=== PATIENT | female | born 1995 | race Hispanic/Latino ===

== ENCOUNTER 2017-07-29 17:54 | Emergency (ER) | payer OTHER ==
[~2017-07-29] VITALS: Ht 160 cm; Wt 77.1 kg
[~2017-07-29 17:54] MED LIST: PERCOCET 5-3251 EACH PO
[2017-07-29 18:22] VITALS: BP 124/86
[2017-07-29 19:00] LABS: ABSOLUTE BASOPHIL COUNT 0 /CUMM (0.0-0.2); ABSOLUTE EOSINOPHIL COUNT 0 /CUMM (0.0-0.7); ABSOLUTE GRANULOCYTE CT 8.6 /CUMM (1.4-6.5); ABSOLUTE LYMPH COUNT 1.9 /CUMM (1.2-3.4); ABSOLUTE MONOCYTE COUNT 0.6 /CUMM (0.10-0.60); BASOPHIL % 0 % (0.0-2.0); EOSINOPHIL % 0.3 % (0-5); GRANULOCYTE % 76.7 % (42.2-75.2); HEMATOCRIT 41.3 % (37-47); MEAN CORPUSCULAR HGB CONC 33.3 G/DL (33.0-37.0); MEAN CORPUSCULAR VOLUME 90.1 FL (81.0-99.0); MEAN PLATELET VOLUME 8.6 FL (7.4-10.4); PLATELET COUNT 279 /CUMM (130-400); RBC DISTRIBUTION WIDTH 13.2 % (11.5-14.5); RED BLOOD CELL CT 4.58 /CUMM (4.20-5.40); WHITE BLOOD CELL COUNT 11.1 /CUMM (4.8-10.8)
== END 2017-07-29 21:04 | disposition admitted as inpatient to this hospital (09) ==
LOC: ERH 17:54
PROVIDERS: Physician Assistant Medical
DX: R11.10 Vomiting, unspecified (principal)
CPT/HCPCS: 81025; 99281

== ENCOUNTER 2017-08-07 21:32 | Emergency (ER) | payer OTHER ==
[~2017-08-07] VITALS: Ht 157.5 cm; Wt 81.6 kg
--- NOTE | 2017-08-07 21:58 | ED GENERAL ADULT ---
History of Present Illness General Chief Complaint: Abdominal Pain/Flank Pain Stated Complaint: PT ABDOMANAIL PAIN Source: patient Exam Limitations: no limitations Vital Signs & Intake/Output Vital Signs & Intake/Output Vital Signs Date Time Temp Pulse Resp B/P B/P Pulse O2 O2 Flow FiO2 Mean Ox Delivery Rate 08/07 2202 Room Air 08/07 2145 96.9 79 18 124/75 98 Room Air Allergies Coded Allergies: watermelon (Severe, THROAT SWELLING 11/05/15) No Known Drug Allergies (Intermediate, NONE 07/29/17) Reconcile Medications Oxycodone HCl/Acetaminophen (Percocet 5-325 MG Tablet) 1 EACH TABLET 1-2 TAB PO Q4-6P PRN PAIN Triage Note: RECEIVED 22 YO FEMALE C/O LEFT LOWER QUADRENT ABDOMINAL PAIN, STARTED 2 DAYS AGO, WORSENING. NO C/O NAUSEA, PT REPORTS VOMITING INTERMITTENTLY. Triage Nurses Notes Reviewed? yes Onset: Abrupt Duration: day(s): Timing: recent history : No Patient currently breastfeeds: No HPI: 08/07/17 10 PM 22-year-old female presents to the emergency department with left-sided abdominal pain. The patient states she was in her usual state of health until approximately 48 hours prior to arrival when she developed left upper quadrant abdominal pain. She denies vomiting. She says it feels like she has to pee. She denies vaginal bleeding. She says that her last menstrual period was on the 20th of last month. She denies any vaginal discharge. She is a 1 para 0 with one prior induced . She denies alcohol but does smoke marijuana. Past History Travel History Traveled to [place] past 21 day No Medical History Any Pertinent Medical History? see below for history Neurological: NONE EENT: NONE Cardiovascular: NONE Respiratory: asthma Gastrointestinal: NONE Hepatic: NONE Renal: NONE Musculoskeletal: NONE Psychiatric: NONE Endocrine: NONE Blood Disorders: NONE Cancer(s): NONE FOUNDRY HAND/Reproductive: NONE Surgical History Surgical History: appendectomy Psychosocial History What is your primary language [place] Tobacco Use: Never used Family History Hx Contributory? No Review of Systems Review of Systems Constitutional: Denies: fever. EENTM: Reports: no symptoms. Respiratory: Denies: short of breath. Cardiovascular: Denies: chest pain. GI: Reports: abdominal pain. Denies: vomiting. Genitourinary: Reports: dysuria. Musculoskeletal: Reports: no symptoms. Skin: Reports: no symptoms. Neurological/Psychological: Reports: no symptoms. Hematologic/Endocrine: Reports: no symptoms. Immunologic/Allergic: Reports: no symptoms. Physical Exam Physical Exam General Appearance: well developed/nourished, alert, awake, anxious, mild distress Head: atraumatic, normal appearance Eyes: Bilateral: normal appearance, PERRL, EOMI. Ears, Nose, Throat: normal pharynx, normal ENT inspection, hearing grossly normal Neck: normal inspection Respiratory: normal breath sounds, chest non-tender, no respiratory distress Cardiovascular: regular rate/rhythm Peripheral Pulses: 4+ radial (R), 4+ radial (L) Gastrointestinal: soft, non-tender Back: normal range of motion Extremities: normal range of motion Neurologic/Psych: no motor/sensory deficits, awake, alert, oriented x 3 Skin: intact, normal color, warm/dry Core Measures ACS in differential dx? No CVA/TIA Diagnosis: No Sepsis Present: No Sepsis Focused Exam Completed? No Progress Differential Diagnoses I considered the following diagnoses in my evaluation of the patient: [UTI, pyelonephritis, cervicitis, ovarian cyst, ovarian torsion, PID, gastritis] Plan of Care: Orders Procedure Date/time Status Add-on Test (ER Only) 08/08 2215 Active CHLAMYDIA-GC DNA PROBE 08/07 2199 Active LIPASE 08/07 2137 Complete COMPREHENSIVE METABOLIC PANEL 08/07 2137 Complete CBC WITHOUT DIFFERENTIAL 08/07 2137 Complete URINE 08/07 2136 Complete URINALYSIS 08/07 2136 Complete Laboratory Tests 08/07/172199: Urine Color YEL, Urine Clarity HAZY H, Urine pH 7.0, Ur Specific [place] 1.020, Urine Protein NEG, Urine Ketones NEG, Urine Nitrite NEG, Urine Bilirubin NEG, Urine Urobilinogen 0.2, Ur Leukocyte Esterase NEG, Ur Microscopic SEDIMENT EXAMINED, Urine RBC 1-3, Urine WBC 1-3 H, Ur Epithelial Cells MANY H, Urine Bacteria RARE H, Urine Mucus RARE, Urine Hemoglobin NEG, Urine Glucose NEG, Urine Test NEGATIVE 08/07/172153: Anion Gap 11, Estimated GFR > 60, BUN/Creatinine Ratio 21.4, Glucose 95, Calcium 9.3, Total Bilirubin 0.4, AST 18, ALT 22, Alkaline Phosphatase 76, Total Protein 7.5, Albumin 4.5, Globulin 3.0, Albumin/Globulin Ratio 1.5, Lipase 125, CBC w Diff NO MAN DIFF REQ, RBC 4.58, MCV 89.8, MCH 30.1, MCHC 33.5, RDW 13.2, MPV 8.8 , Gran % 64.1, Lymphocytes % 26.1, Monocytes % 7.3, Eosinophils % 1.9, Basophils % 0.6, Absolute Granulocytes 6.1, Absolute Lymphocytes 2.5, Absolute Monocytes 0.7 H, Absolute Eosinophils 0.2, Absolute Basophils 0.1 Microbiology 08/07 2199 URINE ROUT: GC DNA Probe - RECD 08/07 2199 URINE ROUT: Chlamydia DNA Probe (VERITO) - RECD Initial ED EKG: none Departure Departure Disposition: STILL A PATIENT Condition: Stable Clinical Impression Primary Impression: Abdominal pain Referrals: Alena MCMILLAN,Carmella Galvan (PCP/Family) Departure Forms: Customer Survey General Discharge Information Comments 08/07/17 11 PM Patient has minimal to no pain at this time. Labs are unremarkable, she does have mild pyuria. We'll empirically treat with Keflex. I will send a culture. I will also give her an outpatient slip for a pelvic ultrasound. She will follow-up with her doctor on Thursday or return to the emergency department if worse. Critical Care Note Critical Care Note Critical Care Time: non-applicable
[2017-08-07 22:14] LABS: ABSOLUTE BASOPHIL COUNT 0.1 /CUMM (0.0-0.2); ABSOLUTE EOSINOPHIL COUNT 0.2 /CUMM (0.0-0.7); ABSOLUTE GRANULOCYTE CT 6.1 /CUMM (1.4-6.5); ABSOLUTE LYMPH COUNT 2.5 /CUMM (1.2-3.4); ABSOLUTE MONOCYTE COUNT 0.7 /CUMM (0.10-0.60); BASOPHIL % 0.6 % (0.0-2.0); EOSINOPHIL % 1.9 % (0-5); GRANULOCYTE % 64.1 % (42.2-75.2); HEMATOCRIT 41.1 % (37-47); MEAN CORPUSCULAR HGB 30.1 PG (27.0-31.0); MEAN CORPUSCULAR HGB CONC 33.5 G/DL (33.0-37.0); MEAN CORPUSCULAR VOLUME 89.8 FL (81.0-99.0); MEAN PLATELET VOLUME 8.8 FL (7.4-10.4); PLATELET COUNT 261 /CUMM (130-400); RBC DISTRIBUTION WIDTH 13.2 % (11.5-14.5); RED BLOOD CELL CT 4.58 /CUMM (4.20-5.40); WHITE BLOOD CELL COUNT 9.6 /CUMM (4.8-10.8)
[2017-08-07] MEDS ORDERED: KEFLEX500 M1 PO (22:59)
[2017-08-07 23:03] VITALS: BP 118/79
== END 2017-08-07 23:03 ==
LOC: ERH 21:32
PROVIDERS: Physician Assistant Medical
DX: R10.12 Left upper quadrant pain (principal)
CPT/HCPCS: 81001; 81025; 87491; 87591